=== PATIENT | female | born 1960 | race Caucasian/White ===

== ENCOUNTER → 2019-11-07 | Outpatient (CLI) | payer OTHER ==
[2019-11-07 12:34] LABS: BASOPHILS ABSOLUTE AUTO 0.04 K/mm3 (0.00-0.23); BASOPHILS PERCENT AUTO 1 % (0-2); EOSINOPHILS ABSOLUTE AUTO 0.04 K/mm3 (0.00-0.68); EOSINOPHILS PERCENT AUTO 1 % (0-6); Hematocrit 40.7 % (33.0-51.0); Hemoglobin 13.7 g/dL (11.5-16.0); IMMATURE GRAN ABSOLUTE AUTO 0.02 K/mm3 (0.00-0.10); IMMATURE GRAN PERCENT AUTO 0 % (0-1); LYMPHOCYTES ABSOLUTE AUTO 1.66 K/mm3 (0.84-5.20); LYMPHOCYTES PERCENT AUTO 26 % (21-46); MONOCYTES ABSOLUTE AUTO 0.53 K/mm3 (0.16-1.47); MONOCYTES PERCENT AUTO 8 % (4-13); Mean Corpuscular HGB 31.3 pg (26.0-34.0); Mean Corpuscular HGB Conc 33.7 g/dL (31.5-36.5); Mean Corpuscular Volume 93 fL (80-100); Mean Platelet Volume 10.4 fL (9.1-12.4); NEUTROPHILS ABSOLUTE AUTO 4.05 K/mm3 (1.96-9.15); NEUTROPHILS PERCENT AUTO 64 % (41-73); Platelet Count 260 K/mm3 (150-400); RDW Coefficient Variation 12.8 % (11.7-14.2); Red Blood Cell Count 4.38 M/mm3 (3.80-5.20); White Blood Cell Count 6.34 K/mm3 (4.00-11.30)
[2019-11-07 13:11] LABS: Anion Gap 8 mmol/L (6-16); Blood Urea Nitrogen 23 mg/dL (8-24); Bun/Creatinine Ratio 26.1 (12.0-20.0); CO2, Blood 29 mmol/L (21-32); Calcium, Blood 9.1 mg/dL (8.5-10.1); Chloride, Blood 100 mmol/L (98-108); Creatinine, Blood 0.88 mg/dL (0.40-1.00); Glomerular Filtration Rate >60 (60-); Glucose, Blood 93 mg/dL (70-99); Potassium, Blood 4.3 mmol/L (3.5-5.5); Sodium, Blood 137 mmol/L (136-145); Thyroid Stimulating Hormone 0.999 uIU/mL (0.360-4.800)
[2019-11-07 13:17] LABS: Troponin I <0.017 ng/mL (0.000-0.040)
== END | disposition home or self-care (01) ==
LOC: LAB SHORT 12:26 → LAB EV 12:26
PROVIDERS: Physician Assistant Surgical
DX: R06.09 Other forms of dyspnea (principal); R53.83 Other fatigue; Z20.828 Contact with and (suspected) exposure to other viral communicable diseases
CPT/HCPCS: 80048; 84443; 84484; 85025; 85379; U0003

== ENCOUNTER 2020-01-24 02:17 | Emergency (ER) | payer OTHER ==
[~2020-01-24] VITALS: Ht 170.2 cm; Wt 90.7 kg
[2020-01-24] MEDS ORDERED: FLUT.05NI (03:14)
[2020-01-24] MEDS ORDERED: PANTOPRAZOLE SO40 M2 PO (03:15)
[2020-01-24] MEDS ORDERED: ATEN25 PO (03:15)
[2020-01-24 03:22] LABS: Source, Urine Clean Catch
[2020-01-24 03:26] LABS: Bilirubin, Urine Neg (Neg); Blood, Urine 5+ (Neg); Glucose Qualitative, Urine Neg (Neg); Ketones, Urine Neg (Neg); Leukocyte Esterase, Urine 3+ (Neg); Nitrite, Urine Neg (Neg); Protein, Urine 4+ (Neg); Specific Gravity, Urine 1.015 (1.003-1.022); Urobilinogen, Urine NORM (Normal)
[2020-01-24 03:28] LABS: Appearance, Urine Turbid (Clear); Color, Urine Red (P-Yellow)
[2020-01-24 03:39] LABS: Bacteria Few /hpf; Red Blood Cells, Urine TNTC /hpf (0-2); Squamous Epithelial Cells Not Seen /hpf (Few); White Blood Cells, Urine 25-50 /hpf (0-5)
[2020-01-24] MEDS ORDERED: Pyridium100 MG PO (03:48)
[2020-01-24] MEDS ORDERED: Macrobid 100 M100 MG PO (03:48)
== END 2020-01-24 03:58 | disposition home or self-care (01) ==
LOC: ER 02:17
PROVIDERS: Student in an Organized Health Care Education/Training Program
DX: N39.0 Urinary tract infection, site not specified (principal); Z79.899 Other long term (current) drug therapy; Z88.1 Allergy status to other antibiotic agents; Z88.5 Allergy status to narcotic agent; Z88.6 Allergy status to analgesic agent
CPT/HCPCS: 81001; 87077; 87086; 87186; 99283

== ENCOUNTER 2020-12-30 10:03 | Day surgery (SDC) | payer BC ==
[~2020-12-30] VITALS: Ht 175.3 cm; Wt 99.4 kg
[~2020-12-30 10:03] MED LIST: ATEN25 PO; FLUT.05NI; Macrobid 100 M100 MG PO; PANTOPRAZOLE SO40 M2 PO; Pyridium100 MG PO
[2020-12-30] MEDS ORDERED: LOW DOSE ASPIRI81 M1 PO (10:49)
[2020-12-30] MEDS ORDERED: FLUTICASONE-SA1 EAC9 IH (10:50)
[2020-12-30] MEDS ORDERED: MELO7.5 PO (10:53)
[2020-12-30] MEDS ORDERED: LORAZEPAM0.5 MG PO (10:53)
[2020-12-30] MEDS ORDERED: MECL12.5 PO (10:53)
[2020-12-30] MEDS ORDERED: BACLOFEN PO (10:54)
== END 2020-12-30 13:45 | disposition home or self-care (01) ==
LOC: ORSCSDS 10:03
PROVIDERS: Orthopaedic Surgery
PROC: 0SBD4ZZ Excision of Left Knee Joint, Percutaneous Endoscopic Approach (ICD-10-PCS; principal; 2020-12-30 11:30)
DX: S83.242A Other tear of medial meniscus, current injury, left knee, initial encounter (principal); M25.562 Pain in left knee; M94.262 Chondromalacia, left knee; I10 Essential (primary) hypertension; E78.5 Hyperlipidemia, unspecified; G47.33 Obstructive sleep apnea (adult) (pediatric); J45.909 Unspecified asthma, uncomplicated; B19.20 Unspecified viral hepatitis C without hepatic coma; Z79.82 Long term (current) use of aspirin; Z79.899 Other long term (current) drug therapy
CPT/HCPCS: A9270; J0171; J0690; J1100; J1885; J2250; J2405; J2704; J3010; J7120

== ENCOUNTER → 2021-12-21 | Outpatient (CLI) | payer BC ==
[~2021-12-21] MED LIST changes: +BACLOFEN PO; +FLUTICASONE-SA1 EAC9 IH; +LORAZEPAM0.5 MG PO; +LOW DOSE ASPIRI81 M1 PO; +MECL12.5 PO; +MELO7.5 PO
== END ==
LOC: LAB 08:57 → LAB SHORT 08:57
DX: N39.0 Urinary tract infection, site not specified (principal)
CPT/HCPCS: 87077; 87086; 87186